=== PATIENT | male | born 1985 | race Caucasian/White ===

== ENCOUNTER 2019-02-15 19:09 | Emergency (ER) | payer SELFPAY ==
[~2019-02-15] VITALS: Ht 175.3 cm; Wt 74.4 kg
[~2019-02-15 19:09] MED LIST: IBUP800T48 PO
[2019-02-15 19:16] VITALS: BP 122/70; PULSE 54; RESP 16; Ht 175.3 cm; Wt 74.4 kg
== END 2019-02-15 19:50 | disposition home or self-care (01) ==
LOC: E/R 19:09
DX: Z48.00 Encounter for change or removal of nonsurgical wound dressing (principal)
CPT/HCPCS: 99281